=== PATIENT | female | born 1960 | race Caucasian/White ===

== ENCOUNTER → 2017-01-14 | Outpatient (CLI) | payer OTHER ==
--- NOTE | 2017-01-14 10:32 | MM ---
Reason for exam: follow-up at short interval from prior study. Last mammogram was performed 9 months ago. History: Patient is postmenopausal. Family history of breast cancer in paternal cousin at age 80. Benign lumpectomy of the left breast, 2010. Took hormonal contraceptives for 1 year beginning at age 30. Physical Findings: Nurse did not find any significant physical abnormalities on exam. MG Diagnostic Mammo LT w CAD CC and MLO view(s) were taken of the left breast. Prior study comparison: April 30, 2016, left breast MG work up mamm w CAD LT. April 09, 2016, bilateral MG screening mammo w CAD. There are scattered fibroglandular densities. Finding: There are typically benign round, regional calcifications in the left breast. Asymmetric breast tissue in the left inferior inner aspect, stable. There is no discrete abnormality. These results were verbally communicated with the patient and result sheet given to the patient on 01/14/17. ASSESSMENT: Benign, BI-RAD 2 RECOMMENDATION: Return to routine screening mammogram schedule for both breasts. Back on schedule for April 2017.
== END | disposition home or self-care (01) ==
LOC: RADMAMWWP 09:43
PROVIDERS: ATTEND Pediatrics
DX: R92.8 Other abnormal and inconclusive findings on diagnostic imaging of breast (principal)

== ENCOUNTER → 2017-11-12 | Outpatient (CLI) | payer OTHER | END | disposition home or self-care (01) | LOC: CANPRECLI → RADMAMWWP 10:25 | PROVIDERS: ATTEND Pediatrics | DX: Z53.9 Procedure and treatment not carried out, unspecified reason (principal) ==

== ENCOUNTER → 2018-05-19 | Outpatient (CLI) | payer OTHER ==
--- NOTE | 2018-05-19 15:39 | US ---
EXAMINATION TYPE: US abdomen complete DATE OF EXAM: 05/19/2018 COMPARISON: NONE CLINICAL HISTORY: R10.9 abdominal pain. RUQ pain. Difficult and limited exam due to overlying bowel gas EXAM MEASUREMENTS: Liver Length: 17.0 cm Gallbladder Wall: 0.2 cm CBD: 0.4 cm Spleen: 14.4 cm Right Kidney: 10.2 x 4.3 x 4.4 cm Left Kidney: 10.8 x 4.4 x 4.7 cm Pancreas: Obscured by bowel gas Liver: Increased attenuation, decreased visualization of vessels suggestive of fatty infiltrate. Cys tic area visualized, better visualized intercostal, measuring 2.0 x 2.2 x 2.2 cm Gallbladder: Multiple stones visualized, Evidence for sonographic Jean-Baptiste's sign: No CBD: wnl Spleen: Enlarged Right Kidney: No hydronephrosis or masses seen Left Kidney: No hydronephrosis. Prominent area mid pole, possible column of sherlyn vs other Upper IVC: wnl Abd Aorta: Obscured by overlying bowel gas, visualized portions wnl IMPRESSION: 1. Hepatic steatosis. 2. Hepatic cysts. 3. Uncomplicated cholelithiasis.
--- NOTE | 2018-05-25 13:03 | MM ---
Reason for exam: screening (asymptomatic). Last mammogram was performed 1 year and 4 months ago. History: Patient is postmenopausal. Family history of breast cancer in paternal cousin at age 80. Benign lumpectomy of the left breast, 2010. Took hormonal contraceptives for 1 year beginning at age 30. Physical Findings: A clinical breast exam by your physician is recommended on an annual basis and results should be correlated with mammographic findings. MG Screening Mammo w CAD Bilateral CC and MLO view(s) were taken. Prior study comparison: January 14, 2017, left breast MG diagnostic mammo LT w CAD. April 30, 2016, left breast MG work up mamm w CAD LT. There are scattered fibroglandular densities. No significant changes when compared with prior studies. ASSESSMENT: Benign, BI-RAD 2 RECOMMENDATION: Routine screening mammogram of both breasts in 1 year.
== END | disposition home or self-care (01) ==
LOC: RADMAMWWP 14:34
PROVIDERS: ATTEND Pediatrics
DX: Z12.31 Encounter for screening mammogram for malignant neoplasm of breast (principal); K76.0 Fatty (change of) liver, not elsewhere classified; K76.89 Other specified diseases of liver; K80.20 Calculus of gallbladder without cholecystitis without obstruction
CPT/HCPCS: 76700; 77067

== ENCOUNTER → 2018-07-07 | Outpatient (CLI) | payer OTHER | END | disposition home or self-care (01) | LOC: LABWHC1 14:44 | PROVIDERS: ATTEND Surgery Plastic and Reconstructive Surgery | DX: Z01.810 Encounter for preprocedural cardiovascular examination (principal) | CPT/HCPCS: 93005 ==

== ENCOUNTER → 2018-09-21 | Outpatient (CLI) | payer OTHER ==
[2018-09-21 15:21] LABS: HCT 45.7 % (34.0-46.0); MCH 29.5 pg (25.0-35.0); MCHC 32.9 g/dL (31.0-37.0); MCV 89.6 fL (80.0-100.0); Platelet Count 231 k/uL (150-450); RDW 12.4 % (11.5-15.5); WBC 10.4 k/uL (3.8-10.6)
[2018-09-21 15:32] LABS: ALT 27 U/L (9-52); AST 26 U/L (14-36); Alkaline Phosphatase 67 U/L (38-126); Anion Gap 6 mmol/L; Blood Urea Nitrogen 14 mg/dL (7-17); Calcium 9.4 mg/dL (8.4-10.2); Carbon Dioxide 28 mmol/L (22-30); Chloride 106 mmol/L (98-107); Glucose 93 mg/dL (74-99); Potassium 4.6 mmol/L (3.5-5.1); Sodium 140 mmol/L (137-145); Total Bilirubin 0.4 mg/dL (0.2-1.3); Total Protein 6.4 g/dL (6.3-8.2)
== END | disposition home or self-care (01) ==
LOC: LABPAT 14:29
PROVIDERS: ATTEND Surgery Plastic and Reconstructive Surgery
DX: Z01.812 Encounter for preprocedural laboratory examination (principal)
CPT/HCPCS: 36415; 80053; 85027

== ENCOUNTER 2018-09-25 09:00 | Day surgery (SDC) | payer OTHER ==
[2018-09-22 15:52] VITALS: BMI 31.4
--- NOTE | 2018-09-25 05:23 | P.GSHP ---
History of Present Illness H&P Date: 09/25/18 CHIEF COMPLAINT: Cholecystitis HISTORY OF PRESENT ILLNESS: The patient is a 57-year-old female who presents with history of epigastric including right upper quadrant abdominal pain. She underwent diagnostic studies for her gallbladder. Separately her clinical picture was consistent with cholecystitis. Now she presents for surgical intervention. PAST MEDICAL HISTORY: Please see list PAST SURGICAL HISTORY: Please see list MEDICATIONS: Please see list ALLERGIES: Please see list SOCIAL HISTORY: No illicit drug use FAMILY HISTORY: Pertinent for gallbladder disease REVIEW OF ORGAN SYSTEMS: CONSTITUTIONAL: No reports of fevers or chills. HEENT: Denies any troubles with the vision or hearing. ENDOCRINE: No reports of hypothyroidism. No diabetes. RESPIRATORY: No recent pneumonias. CARDIOVASCULAR: Denies chest pain or palpitations GI: No blood in stools or constipation. MUSCULOSKELETAL: Has occasional joint pain including back pain. NEURO: No seizure disorders or headaches. No recent stroke. PSYCH: No depression or suicidal ideation. GENITOURINARY: No active blood in urine. No urinary hesitancy. HEMATOLOGIC: No personal or family history of DVTs or pulmonary emboli. SKIN: No skin cancer. PHYSICAL EXAM: VITAL SIGNS: Afebrile vital signs stable GENERAL: Well-developed pleasant in no acute distress. HEENT: No scleral icterus. Extraocular movements grossly intact. Moist buccal mucosa. NECK: Supple without lymphadenopathy. CHEST: Unlabored respirations. Equal bilateral excursions. CARDIOVASCULAR: Regular rate regular rhythm rhythm. Distal 2+ pulses. ABDOMEN: Soft, nondistended. Tender along the epigastrium and right upper quadrant. MUSCULOSKELETAL: No clubbing, cyanosis, or edema. NEURO: Cranial nerves II to XII within normal limits. No focal or lateralizing signs. PSYCH: Alert and oriented to person, place and time. SKIN: Well-perfused good skin turgor. ASSESSMENT: 1. Epigastric and right upper quadrant abdominal pain 2. Chronic cholecystitis 3. Symptomatic gallstones. PLAN: 1. Will need a robotic cholecystectomy possible open. Benefits and risks were described. 2. Heparin for DVT prophylaxis 5000 units. 3. Antibiotic prophylaxis. Past Medical History Past Medical History: Asthma, GERD/Reflux, Thyroid Disorder Additional Past Medical History / Comment(s): OCCASIONAL TREMORS OF HANDS, ENVIRONMENTAL ALLERGIES- RECENT LUNG TESTING, BACK PAIN, IBS WITH CONSTIPATION AND DIARRHEA, HX OF PRE-CANCEROUS CERVICAL TISSUE., ANEMIA. HTN during . Fatty liver. History of Any Multi-Drug Resistant Organisms: None Reported Past Surgical History: Tubal Ligation Additional Past Surgical History / Comment(s): Septoplasty , BREAST BX AND LUMPECTOMY, COLON POLYPS, abnormal cervical cells. Past Anesthesia/Blood Transfusion Reactions: No Reported Reaction Additional Past Anesthesia/Blood Transfusion Reaction / Comment(s): States her sisiter had problems with her anesthesia. "They had to give her more anesthesia. Smoking Status: Former smoker - Past Family History Sister(s) Family Medical History: Cancer Additional Family Medical History / Comment(s): SISTER OF BONE CANCER A TEENAGER Medications and Allergies Home Medications Medication Instructions Recorded Confirmed Type Acetaminophen Tab [Tylenol Tab] 650 mg PO Q4-6H PRN 05/28/16 09/22/18 History Calcium Carbonate [Calcium] 1,200 mg PO DAILY 05/28/16 09/22/18 History Cetirizine HCl [Zyrtec] 10 mg PO DAILY 05/28/16 09/22/18 History Ferrous Sulfate [Feosol] 325 mg PO DAILY 05/28/16 09/22/18 History Ibuprofen [Motrin] 200 - 400 mg PO Q6HR PRN 05/28/16 09/22/18 History Levothyroxine Sodium [Synthroid] 50 mcg PO DAILY 05/28/16 09/22/18 History Ranitidine HCl [Zantac] 150 mg PO BID 05/28/16 09/22/18 History Montelukast [Singulair] 10 mg PO HS 09/22/18 09/22/18 History Sertraline HCl [Zoloft] 100 mg PO DAILY 09/22/18 09/22/18 History Allergies Allergy/AdvReac Type Severity Reaction Status Date / Time aspirin Allergy Unknown Unknown Verified 09/22/18 15:13 bacitracin Allergy Unknown Rash/Hives Verified 09/22/18 15:13 [From Neosporin ([id number])] bacitracin zinc Allergy Unknown Rash/Hives Verified 09/22/18 15:13 [From Neosporin ([id number])] neomycin sulfate Allergy Unknown Rash/Hives Verified 09/22/18 15:13 [From Neosporin ([id number])] Penicillins Allergy Unknown Unknown- Verified 12/18/18 15:13 States she tested positive polymyxin B Allergy Unknown Rash/Hives Verified 09/22/18 15:13 [From Neosporin ([id number])]
[~2018-09-25 09:00] MED LIST: ACETAMINOPHEN IV (For NPO) 1,000 MG in EMPTY BAG 1 BAG IVPB ONE; DEXAMETHASONE SOD PHOSPHATE 10 MG/ML 1 ML VIAL IV ONE; HEPARIN SODIUM,PORCINE 5,000 UNIT/ML 1 ML VIAL SQ ONE; HYDROmorphone 0.5 MG/0.5 ML SYRINGE IVP PRN; INDOCYANINE GREEN 25 MG VIAL IV STA; LACTATED RINGERS 1,000 ML IV SCH; MIDAZOLAM (PF) 2 MG/2 ML VIAL IV PRN; ONDANSETRON 4 MG/2 ML VIAL IVP ONE; Pre Op ABX Message 1 EACH MISC MISCELLANE ONE; SCOPOLAMINE 1.5MG/72HR PATCH TRANSDERM ONE; ceFAZolin IN SWFI 2 GM/20 ML SYRINGE IVP ONE
[2018-09-25] MEDS ORDERED: GLYCOPYRROLATE 0.2 MG/ML 2 ML VIAL ONE (12:11)
[2018-09-25] MEDS ORDERED: INDOCYANINE GREEN 25 MG VIAL IV ONE (12:11)
[2018-09-25] MEDS ORDERED: PROPOFOL 10 MG/ML 20 ML VIAL IV ONE (12:11)
[2018-09-25] MEDS ORDERED: fentaNYL (PF) 50 MCG/ML 2 ML AMP ONE (12:11)
[2018-09-25] MEDS ORDERED: MIDAZOLAM 2 MG/2 ML VIAL ONE (12:11)
[2018-09-25] MEDS ORDERED: LIDOCAINE 1% INJ 10MG/ML (20 ML MDV) ONE (12:11)
[2018-09-25] MEDS ORDERED: ePHEDrine SULFATE/0.9% NACL/PF 50 MG/5 ML SYRINGE IV ONE (12:11)
[2018-09-25] MEDS ORDERED: SUCCINYLCHOLINE CHLORIDE 100 MG/5 ML SYR IV ONE (12:11)
[2018-09-25] MEDS ORDERED: ROCURONIUM BROMIDE 10 MG/ML 10 ML VIAL IV ONE (12:11)
[2018-09-25] MEDS ORDERED: NEOSTIGMINE 1 MG/ML 10 ML VIAL ONE (12:11)
[2018-09-25] MEDS ORDERED: BUPIVACAIN-EPI 0.25%-1:200,000 30 ML VIAL SQ ONE (12:34)
[2018-09-25 13:22] VITALS: TEMP 97.2
--- NOTE | 2018-09-25 13:23 | P.OP ---
Date of Procedure: 09/25/18 Description of Procedure: SURGEON: DELICIA JONES MD PREOPERATIVE DIAGNOSES: 1. Symptomatic gallstones 2. Chronic cholecystitis 3. Fatty liver disease 4. Hypertensive heart disease 5. Anemia 6. Obesity due to excess calories, BMI 31.4 POSTOPERATIVE DIAGNOSES: 1. Symptomatic gallstones 2. Chronic cholecystitis 3. Fatty liver disease 4. Hypertensive heart disease 5. Anemia 6. Obesity due to excess calories, BMI 31.4 7. Hepatomegaly OPERATION: Robotic-assisted da Bruna Xi laparoscopic cholecystectomy, multiport with FIREFLY ESTIMATED BLOOD LOSS: 5 mL. SPECIMENS REMOVED: Gallbladder. COMPLICATIONS: None. OPERATIVE FINDINGS: 1. Large gallstones over 1 cm INDICATIONS: The patient is a 57-year-old female who presents with cholelcystitis. Surgical intervention with a laparoscopic cholecystectomy was described at length including injury to the biliary tree, bleeding, infection, need for further surgery. Informed consent was obtained. Robotic assisted laparoscopic approach was described. Benefits and risks of the procedure including but not limited to bleeding, infection, injury to the biliary tree was described. Informed consent was obtained. DESCRIPTION OF PROCEDURE: Patient was brought to the operating room, placed in supine position. After general induction, the abdomen had been prepped and draped in standard sterile fashion. The robotic da Bruna XI system was primed. After a timeout protocol was performed, the patient had been prepped and draped in standard sterile fashion. The patient was injected with indocyanine green. A 5 mm 0 degrees laparoscopic trocar entry was performed along the left upper quadrant. The abdomen insufflated to 15 mmHg pressure which was tolerated well. Diagnostic laparoscopy demonstrated no injury to bowel viscera or mesentery. The liver surface was unremarkable. Next, two 8 mm robotic ports were placed along the right upper abdomen. The camera 8-mm port was maintained along the epigastrium. Another 8 mm port was placed along the left upper abdominal wall after exchanging the 5 mm port. Please note that the ports were placed at least 10 to 15 cm away from the target anatomy of the gallbladder. The robot was docked along the left lateral abdomen. The patient was repositioned in reverse Trendelenburg position. Using a grasper for arm 3, a grasper for arm 4, including hook cautery for arm 1 , the robotic system was docked and primed as described. Instruments were interchanged by the assistant grocery store manager including hook cautery, Bovie cautery and clip appliers. I had sat at the console. The gallbladder fundus was retracted over the dome of the liver. Initial attention was brought to the infundibulum which was gently retracted in the inferior lateral approach. Using a grasper, the cystic duct including the cystic artery was carefully skeletonized. FIREFLY was used to identify the cystic artery and cystic structures. Large PLASTIC clips were used throughout the entire case. Using a clip director of student services 2 clips were placed proximally, and 1 clip was placed distally along the cystic duct and then cauterized with the cautery. Again care was taken to avoid any injury to the biliary tree as the common bile duct was clearly visualized during this portion of dissection. Next, the cystic artery was similarly clipped and cauterized. Electro-Bovie cautery was used to remove the gallbladder from the hepatic fossa. Hemostasis was checked and found to be adequate. The robot was undocked. I re-scrubbed into the case. Using a 10 mm Endo Catch bag via the left upper quadrant incision, the specimen was removed from the abdominal cavity. All pneumoperitoneum instruments were evacuated from the abdominal cavity. The incisions were reapproximated using 4-0 Monocryl in an interrupted subcuticular fashion. Fascial defects were less than 8 mm in size. Please note along the trocar sites, local anesthetic was placed as a field block prior to insertion of all instruments. Liquid glue was applied to the skin. At the end of the procedure needle, sponge, and instrument count had been verified correct by the surgical services asst. The patient was transferred to postanesthesia care unit in stable condition. Intraoperative films were shared with the patient's family who were very pleased with the level of care. Console time 15 minutes Plan - Discharge Summary New Discharge Prescriptions: New HYDROcodone/APAP 5-325MG [[place] 5-325] 1 tab PO Q4HR PRN 3 Days #18 tab PRN Reason: Pain No Action Ibuprofen [Motrin] 200 - 400 mg PO Q6HR PRN PRN Reason: Pain Acetaminophen Tab [Tylenol Tab] 650 mg PO Q4-6H PRN PRN Reason: Pain Cetirizine HCl [Zyrtec] 10 mg PO DAILY Ranitidine HCl [Zantac] 150 mg PO BID Levothyroxine Sodium [Synthroid] 50 mcg PO DAILY Ferrous Sulfate [Feosol] 325 mg PO DAILY Calcium Carbonate [Calcium] 1,200 mg PO DAILY Sertraline HCl [Zoloft] 100 mg PO DAILY Montelukast [Singulair] 10 mg PO HS Discharge Medication List Acetaminophen Tab [Tylenol Tab] 650 mg PO Q4-6H PRN 05/28/16 [History] Calcium Carbonate [Calcium] 1,200 mg PO DAILY 05/28/16 [History] Cetirizine HCl [Zyrtec] 10 mg PO DAILY 05/28/16 [History] Ferrous Sulfate [Feosol] 325 mg PO DAILY 05/28/16 [History] Ibuprofen [Motrin] 200 - 400 mg PO Q6HR PRN 05/28/16 [History] Levothyroxine Sodium [Synthroid] 50 mcg PO DAILY 05/28/16 [History] Ranitidine HCl [Zantac] 150 mg PO BID 05/28/16 [History] Montelukast [Singulair] 10 mg PO HS 09/22/18 [History] Sertraline HCl [Zoloft] 100 mg PO DAILY 09/22/18 [History] HYDROcodone/APAP 5-325MG [[place] 5-325] 1 tab PO Q4HR PRN 3 Days #18 tab [Rx] Follow up Appointment(s)/Referral(s): Delicia Jones MD [STAFF PHYSICIAN] - 10/07/18 Patient Instructions/Handouts: Low Fat Diet (DC), Laparoscopic Cholecystectomy (IP) Activity/Diet/Wound Care/Special Instructions: No lifting over 4 pounds in 1 week. May shower. No bath tub soaks. Low-fat diet for the weekend. MAY TAKE ALEVE, IBUPROFEN FOR PAIN Discharge Disposition: HOME SELF-CARE
[2018-09-25 13:34] VITALS: RESP 16
[2018-09-25 15:00] VITALS: BP 114/59; PULSE 63
== END 2018-09-25 15:30 | disposition home or self-care (01) ==
LOC: OR 09:00
PROVIDERS: ATTEND Surgery Plastic and Reconstructive Surgery
DX: K81.1 Chronic cholecystitis (principal); J45.909 Unspecified asthma, uncomplicated; K21.9 Gastro-esophageal reflux disease without esophagitis; R16.0 Hepatomegaly, not elsewhere classified; K76.0 Fatty (change of) liver, not elsewhere classified; E07.9 Disorder of thyroid, unspecified; I11.9 Hypertensive heart disease without heart failure; R25.1 Tremor, unspecified; E66.9 Obesity, unspecified; Z68.31 Body mass index [BMI] 31.0-31.9, adult; Z87.891 Personal history of nicotine dependence; Z80.8 Family history of malignant neoplasm of other organs or systems; Z79.890 Hormone replacement therapy; Z79.899 Other long term (current) drug therapy; Z88.0 Allergy status to penicillin; Z88.8 Allergy status to other drugs, medicaments and biological substances
CPT/HCPCS: 47562; S2900; 88304